=== PATIENT | female | born 1975 | race Caucasian/White ===

== ENCOUNTER 2018-05-05 07:43 | Emergency (ER) | payer OTHER ==
[~2018-05-05] VITALS: Ht 165.1 cm; Wt 99.8 kg
[2018-05-05] MEDS ORDERED: SYMBICORT80 MCG/4.1 (08:00)
[2018-05-05] MEDS ORDERED: PROAIR HFA8.5 GM (08:00)
[2018-05-05] MEDS ORDERED: IMITREX 25 MG T25 MG (08:02)
[2018-05-05] MEDS ORDERED: IBU600 MG PO (08:36)
[2018-05-05] MEDS ORDERED: HYDROCODON-ACE1 EAC7 PO (08:36)
[2018-05-05 08:52] VITALS: BP 142/86
== END 2018-05-05 08:50 | disposition home or self-care (01) ==
LOC: M.ERS 07:43
DX: S62.610A Displaced fracture of proximal phalanx of right index finger, initial encounter for closed fracture (principal); W23.0XXA Caught, crushed, jammed, or pinched between moving objects, initial encounter; Y93.89 Activity, other specified; Y92.89 Other specified places as the place of occurrence of the external cause; Y99.8 Other external cause status